=== PATIENT | male | born 1985 | race Caucasian/White ===

== ENCOUNTER 2024-05-13 18:47 | Emergency (ER) | payer OTHER ==
[~2024-05-13] VITALS: Ht 177.8 cm; Wt 99.8 kg
[2024-05-13 19:07] LABS: BASOPHILS # (AUTO) 0.1 (0.0-0.1); BASOPHILS % 0.6 % (0.0-1.0); EOSINOPHILS % 0.1 % (0.0-6.0); HEMATOCRIT 46.1 % (38.2-49.6); HEMOGLOBIN 15.5 g/dL (14.0-18.0); LYMPHOCYTES % 42.9 % (18.0-39.1); MEAN CORPUSCULAR HEMOGLOBIN 35.5 pg (28-32); MEAN CORPUSCULAR HGB CONC 33.6 g/dL (31-35); MEAN CORPUSCULAR VOLUME 105.5 fL (81-99); MONOCYTES # (AUTO) 0.6 (0.2-0.8); MONOCYTES % 6.6 % (4.4-11.3); NEUTROPHILS # (AUTO) 4.6 (2.1-6.9); NEUTROPHILS % 49.7 % (38.7-80.0); PLATELET COUNT 338 x10e3/uL (140-360); RED BLOOD COUNT 4.37 x10e6/uL (4.3-5.7); RED CELL DISTRIBUTION WIDTH 12.2 % (11.7-14.4); WHITE BLOOD COUNT 9.27 x10e3/uL (4.8-10.8)
[2024-05-13 19:30] LABS: ALANINE AMINOTRANSFERASE 91 IU/L (0-55); ALBUMIN/GLOBULIN RATIO 1.3 (0.8-2.0); ALKALINE PHOSPHATASE 73 IU/L (40-150); ANION GAP 17.3 mmol/L (8-16); BILIRUBIN,TOTAL 0.8 mg/dL (0.2-1.2); BLOOD UREA NITROGEN < 5 mg/dL (7-26); CALCIUM 9.3 mg/dL (8.4-10.2); CARBON DIOXIDE 26 mmol/L (22-29); CHLORIDE 100 mmol/L (98-107); CREATINE KINASE 278 IU/L (30-200); CREATININE, SERUM 0.94 mg/dL (0.72-1.25); EST GLOMERULAR FILTRATION RATE 106 ML/MIN (>=60); GLUCOSE 103 mg/dL (74-118); SODIUM 140 mmol/L (136-145)
[2024-05-13 19:32] LABS: AMPHETAMINES SCREEN,URINE NEGATIVE (NEGATIVE); BENZODIAZEPINES SCREEN,URINE NEGATIVE (NEGATIVE); CANNABINOIDS SCREEN,URINE NEGATIVE (NEGATIVE); COCAINE SCREEN,URINE NEGATIVE (NEGATIVE); METHADONE SCREEN, URINE POSITIVE (NEGATIVE); OPIATES SCREEN,URINE POSITIVE (NEGATIVE); PHENCYCLIDINE SCREEN,URINE NEGATIVE (NEGATIVE)
[2024-05-13 19:33] LABS: BUN/CREATININE RATIO 5 (6-25); POTASSIUM 3.3 mmol/L (3.5-5.1)
[2024-05-13 19:36] LABS: TROPONIN I 0.061 ng/mL (0-0.300)
[2024-05-13] MEDS: DILTIAZEM HCL 5 MG/ML 5 ML VIAL IV STA ×2 (20:20→22:49)
[2024-05-13] MEDS: METOPROLOL TARTRATE INJ 1 MG/ML VIAL IV STA (20:22)
[2024-05-13] MEDS: DIGOXIN INJ 0.25 MG/ML 2 ML AMP IV STA (20:28)
[2024-05-13] MEDS: SODIUM CHLORIDE 0.9% 1000ML 1,000 ML IV STA ×2 (21:22→21:39)
[2024-05-13] MEDS: METOPROLOL TARTRATE INJ 1 MG/ML VIAL IV ONE (21:23)
[2024-05-13] MEDS: ONDANSETRON HCL INJ 2MG/ML 2ML 2 MG/ML VIAL IV STA (21:39)
[2024-05-13] MEDS: Morphine 4mg INJECTION 4 MG/ML INJ IV STA (21:39)
[2024-05-13 22:49] VITALS: BP 142/103; PULSE 127
[2024-05-13 23:16] VITALS: PULSE 98; RESP 17; TEMP 98.1; O2SAT 95
[2024-05-13] MEDS ORDERED: ULTRAM 50MG50 MG PO (23:16)
== END 2024-05-13 23:25 | disposition home or self-care (01) ==
LOC: ER 18:58
DX: R06.02 Shortness of breath (principal); I48.20 Chronic atrial fibrillation, unspecified; G56.31 Lesion of radial nerve, right upper limb; R00.2 Palpitations; R42 Dizziness and giddiness; R11.2 Nausea with vomiting, unspecified; R94.31 Abnormal electrocardiogram [ECG] [EKG]
CPT/HCPCS: 36415; 70450; 71045; 80053; 80307; 82550; 83690; 83880; 84484; 85025; 93005; 99284; J1160; J2270; J2405; J7030